=== PATIENT | male | born 1970 | race Caucasian/White ===

== ENCOUNTER → 2017-08-14 | Outpatient (CLI) | payer OTHER ==
--- NOTE | 2017-08-14 16:35 | REP ---
LEFT FINGERS, FOUR VIEWS: HISTORY: Laceration. There is no acute fracture or dislocation. The joint spaces are normal in appearance. Small radiopaque densities are present in the soft tissue anterior to the intermediate phalange of the 3rd digit. IMPRESSION:There is no acute fracture or dislocation. Signed by Grey Paul MD 08/14/2017 04:36 P
== END ==
LOC: M WUC 15:50
PROVIDERS: ATTEND Physician Assistant
DX: S61.213A Laceration without foreign body of left middle finger without damage to nail, initial encounter (principal); X58.XXXA Exposure to other specified factors, initial encounter; Y92.9 Unspecified place or not applicable; Y93.9 Activity, unspecified

== ENCOUNTER 2019-03-10 14:17 | Observation (INO) | payer OTHER ==
[~2019-03-10] VITALS: Ht 167.6 cm; Wt 64.0 kg
[2019-03-10] MEDS ORDERED: PRED20TA PO (14:31)
[2019-03-10] MEDS ORDERED: DIAZ5TAB PO ×2 (14:31→21:38)
[2019-03-10] MEDS ORDERED: IBUP80TA PO (14:31)
[2019-03-10] MEDS ORDERED: ALBU8.5H INH (14:33)
[2019-03-10] MEDS ORDERED: LORazepam 2 MG/ML VIAL (J2060) IM STA (14:47)
[2019-03-10] MEDS ORDERED: CYCLOBENZAPRINE 5MG TABLET PO ONE (15:00)
[2019-03-10] MEDS ORDERED: methylPREDNISolone SUSP 40 MG/ML (DEPO-medrol) VIAL (J1030) IM ONE (15:00)
--- NOTE | 2019-03-10 20:45 | REPVR ---
EXAM: MR Lumbar Spine Without Contrast. EXAM DATE/TIME: 03/10/2019 8:03 PM CLINICAL HISTORY: 48 years old, male; Low back pain; Additional info: Worsening low back pain, unable to bear weight TECHNIQUE: Imaging protocol: Multiplanar magnetic resonance images of the lumbar spine without intravenous contrast. COMPARISON: MRI-Spine, L.S. without con 01/30/2014 10:35 PM FINDINGS: Vertebrae: There is no fracture. Lumbar vertebral alignment is normal. The height of the vertebral bodies is normal. Marrow: STIR images demonstrate no evidence of marrow edema or marrow infiltrating lesion. T12-L1: No central stenosis, foraminal stenosis or disc bulge. L1-L2: Disc dehydration with a posterior annular hyperintense signal focus indicating an annular fissure. There is a stable 3 mm central disc protrusion slightly indenting the thecal sac. No central or foraminal stenosis. L2-L3: No central stenosis, foraminal stenosis or disc bulge. L3-L4: No central stenosis, foraminal stenosis or disc bulge. L4-L5: There disc bulge with a more focal 2 mm central disc protrusion stable in comparison to prior scan. There is facet arthropathy which has slightly increased from the prior scan mildly narrowing the foramina. No central stenosis. L5-S1: There is disc dehydration. There is mild disc space narrowing with mild degenerative changes of the endplates. There is a 7 mm right paracentral disc extrusion markedly approaching on the right lateral recess. There is compression of the descending right S1 nerve root. This is significantly larger and more asymmetric to the right compared with the prior scan. Spinal cord: The lower thoracic cord, conus and cauda equina are normal. Kidneys and ureters: Of incidental note is a horseshoe configuration of the kidneys. No hydronephrosis. Soft tissues: There is no paraspinous or intraspinal soft tissue mass, hemorrhage or fluid collection. IMPRESSION: 1. L5-S1: 7 mm right paracentral extrusion markedly encroaching on the right lateral recess and compressing the descending right S1 nerve root. Markedly progressive from prior scan. 2. L1-L2 and L4-L5: Small stable central disc protrusions. 3. Horseshoe kidney incidentally noted. Electronically signed by: Kyle Shukla On 03/10/2019 20:45:17 PM
[2019-03-10] MEDS: DOCUSATE SODIUM 100 MG CAP PO SCH (21:00)
[2019-03-10] MEDS: FAMOTIDINE 20 MG TAB PO SCH (21:00)
[2019-03-10] MEDS ORDERED: PROAAER10 INH (21:38)
[2019-03-10] MEDS ORDERED: IBUP1TAB7 PO (21:38)
[2019-03-11] MEDS ORDERED: MORPHINE 4 MG/ML 1ML VIAL/SYRINGE (J2270) IV PRN (01:00)
[2019-03-11] MEDS ORDERED: MAALOX 30 ML SUSP *UDC PO PRN (01:00)
[2019-03-11] MEDS ORDERED: ACETAMINOPHEN TAB 650MG DOSE (2X325MG) PO PRN (01:00)
[2019-03-11] MEDS ORDERED: MOM 30ML SUSPENSION UDC PO PRN (01:00)
[2019-03-11 02:10] VITALS: BP 129/81
--- NOTE | 2019-03-11 02:12 | HPEPDOC ---
General Date of Admission March 11, 2019 at 00:48 Chief Complaint The patient is a 48-year-old male admitted with a reason for visit of Acute Low Back Pain. Source: Patient, RN/MD History of Present Illness Mr. Elliott is a 48 years old man who had a minor fall yesterday and came to ER with c/o acute, severe lower back pain, exacerbated by movement, unable to stand up. Pt denies motor or sensory defects; denies bowel or urinary problems. Pain radiates to the right thigh. MRI shows disk bulging with compression on L5-S1 nerve root. Dr. West was consulted who recommended conservative management. Home Medications Scheduled Prednisone (Prednisone) 20 Mg Tablet, 60 MG PO DAILY, (Reported) Scheduled PRN Albuterol Sulfate (Proair Hfa) 8.5 Gm Hfa.aer.ad, 2 PUFF INH Q4H PRN for SHORTNESS OF BREATH, (Reported) Diazepam (Diazepam) 5 Mg Tablet, 5 MG PO Q8H PRN for MUSCLE SPASMS, (Reported) CAN TAKE 2ND TABLET PER DOSE Ibuprofen (Ibuprofen) 800 Mg Tablet, 800 MG PO TID PRN for PAIN, (Reported) Allergies Coded Allergies: No Known Allergies (Unverified , 03/10/19) Past Medical History Medical History Chronic back pain from injury many years ago Surgical History None Family History Significant Family History: No pertinent family hx Social History * Smoker: former Smoker Alcohol: Denies Drugs: denies A-FIB/CHADSVASC A-FIB History Current/History of A-Fib/PAF?: No Review of Systems Constitutional: Denies: Chills, Fever, Malaise Eyes: Denies: Pain ENT: Denies: Head Aches Skin: Denies: Rash, Lesions Pulmonary: Denies: Dyspnea, Cough Cardiovascular: Denies: Chest Pain, Edema Gastrointestinal: Denies: Nausea, Vomiting, Abdominal Pain Genitourinary: Denies: Dysuria, Frequency Musculoskeletal: Reports: Back Pain; Denies: Neck Pain Neurological: Denies: Weakness, Numbness Psych: Reports: Mood Normal; Denies: Anxiety Physical Examination General Exam: Positive: Alert, Cooperative, No Acute Distress Eye Exam: Positive: PERRLA ENT Exam: Positive: Atraumatic Neck Exam: Positive: Supple Chest Exam: Positive: Clear to auscultation, Normal air movement Heart Exam: Positive: Rate Normal, Regular Rhythm Abdomen Exam: Positive: Normal bowel sounds, Soft; Negative: Tenderness Extremity Exam: Negative: Edema Skin Exam: Negative: Rash, Breakdown Neuro Exam: Positive: Normal Speech Psych Exam: Positive: Mental status NL, Mood NL Vital Signs Vital Signs Date Time Temp Pulse Resp B/P (MAP) Pulse Ox O2 Delivery O2 Flow Rate FiO2 03/11/19 01:30 99.1 57 16 141/95 (110) 95 Nasal Cannula 2.0 Assessment/Plan Traumatic Radiculopathy due to L5-S1 Nerve Root Compression - Keep in Observation - Pain management: NSAID, Muscle relaxant, Opioid - PT/OT, Orhto consult Plan / VTE VTE Prophylaxis Ordered?: Yes ZAINAB BATEMAN MD March 11, 2019 02:12
[2019-03-11] MEDS: PERCOCET 5MG/325MG TAB PO PRN ×2 (02:23→10:02)
[2019-03-11 04:00] VITALS: BP_SYST 121; BP_SYST 138; BP_DIAS 67; BP_DIAS 83
[2019-03-11] MEDS: IBUPROFEN 800 MG TAB PO SCH ×3 (05:35→21:11)
[2019-03-11] MEDS: DOCUSATE SODIUM 100 MG CAP PO SCH ×2 (08:19→21:11)
[2019-03-11] MEDS: HEPARIN SOD (PORCINE) 5000 UNITS/ML VIAL SC SCH ×3 (08:19→21:14)
[2019-03-11] MEDS: CYCLOBENZAPRINE 10 MG TAB PO SCH ×3 (08:19→21:11)
[2019-03-11] MEDS: FAMOTIDINE 20 MG TAB PO SCH ×2 (08:19→21:11)
[2019-03-11 13:06] LABS: ALT/SGPT 24 U/L (12-78); BILIRUBIN,TOTAL 0.6 MG/DL (0.2-1.0); BLOOD UREA NITROGEN 24 MG/DL (7-18); CALCIUM LEVEL 8.7 MG/DL (8.5-10.1); CARBON DIOXIDE LEVEL 29 MEQ/L (21-32); CHLORIDE LEVEL 105 MEQ/L (98-107); CREATININE FOR GFR 0.95 MG/DL (0.70-1.30); GLOMERULAR FILTRATION RATE > 60.0 (>60); GLUCOSE, FASTING 92 MG/DL (70-100); POTASSIUM SERUM 3.7 MEQ/L (3.5-5.1); SODIUM LEVEL 141 MEQ/L (136-145); TOTAL PROTEIN 6.6 GM/DL (6.4-8.2)
[2019-03-11] MEDS: methylPREDNISolone 4 MG TAB PO SCH ×4 (13:15→21:11)
[2019-03-11 14:00] VITALS: BP 133/60
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
--- NOTE | 2019-03-11 16:07 | IPNPDOC ---
Date Seen The patient was seen on 03/11/19. Progress Note SUBJECTIVE: Patient complaining of severe back pain even with IV pain medicine. was at the site concerned regarding pain and patient's inability to urinate. Patient states that he is secondary due to pain and states that he will most likely go soon. Continue to monitor for urination. Patient also be evaluated 5 pain management. We'll get basic metabolic panel to evaluate renal function and try to utilize non-narcotic medication if possible. OBJECTIVE PHYSICAL EXAMINATION: VITAL SIGNS: Please see below GENERAL APPEARANCE: Resting comfortably HEENT: Normocephalic, PERRLA, Mucous moist, CARDIOVASCULAR: S1,S2, pulse present, regularly, regular LUNGS: Equal air entry b/l, no wheezes or crackle ABDOMEN: Soft, BS present, no tenderness, no guarding EXTREMITIES: B/L no edema, capillary refill present SKIN: Warm, No fever NEUROLOGICAL: Cranial nerves grossly intact PSYCHIATRIC: Normal mood and affect for current situation LABORATORY DATA, IMAGING STUDIES, MICROBIOLOGY: Please see below. Mr. Elliott is a 48 years old man who had a minor fall yesterday and came to ER with c/o acute, severe lower back pain, exacerbated by movement, unable to stand up. Pt denies motor or sensory defects; denies bowel or urinary problems. Pain radiates to the right thigh. MRI shows disk bulging with compression on L5-S1 nerve root. Dr. West was consulted who recommended conservative management. Assessment and plan: 48 years old man with Chronic back pain from injury many years ago and who had a minor fall came to ER. MRI spine showed L5-S1: 7 mm right paracentral extrusion markedly encroaching on the right lateral recess and compressing the descending right S1 nerve root. Markedly progressive from prior scan plus small central disc protrusion.. Back pain -MRI of Spine showed 1. L5-S1: 7 mm right paracentral extrusion markedly encroaching on the right lateral recess and compressing the descending right S1 nerve root. Markedly progressive from prior scan. 2. L1-L2 and L4-L5: Small stable central disc protrusions. 3. Horseshoe kidney incidentally noted. -I personally spoke with Dr. West who does not recommend surgical intervention at this time. Medical pain management including Medrol pack and nonnarcotic medication if possible. Discussed the case and reviewed the MRI with Dr. West who did not observe cauda equina. -Pain management consult with Etelvina Parada -PT rec outpatient PT, script provided -We'll transition to gabapentin or Lyrica, Celebrex, or IV Toradol as tolerated. Tramadol is also on alternative therapy that can be added on. DVT prophylaxis with early ambulation and heparin subcutaneous A-FIB/CHADSVASC A-FIB History Current/History of A-Fib/PAF?: No VS, I&O, 24H, Fishbone Vital Signs/I&O Vital Signs Date Time Temp Pulse Resp B/P (MAP) Pulse Ox O2 Delivery O2 Flow Rate FiO2 03/11/19 14:00 98.6 82 16 133/60 (84) 96 03/11/19 01:30 Nasal Cannula 2.0 I&O- Last 24 Hours up to 6 AM 03/11/19 06:00 Intake Total 0 ml Output Total 350 ml Balance -350 ml Laboratory Data 24H LABS Laboratory Tests 2 03/11/19 12:01: Anion Gap 7L, Glomerular Filtration Rate > 60.0, Blood Urea Nitrogen 24H, Creatinine 0.95, Sodium Level 141, Potassium Level 3.7, Chloride Level 105, Carbon Dioxide Level 29, Calcium Level 8.7, Aspartate Amino Transf (AST/SGOT) 18, Alanine Aminotransferase (ALT/SGPT) 24, Alkaline Phosphatase 77, Total Bilirubin 0.6, Total Protein 6.6, Albumin 4.0, Albumin/Globulin Ratio 1.54 CBC/BMP Laboratory Tests 03/11/19 12:01 Calcium Level 8.7, Aspartate Amino Transf (AST/SGOT) 18, Alanine Aminotransferase (ALT/SGPT) 24, Alkaline Phosphatase 77, Total Bilirubin 0.6, Total Protein 6.6, Albumin 4.0 ALEJANDRO PRIEST MD March 11, 2019 16:07
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
[2019-03-11 21:32] VITALS: BP 115/70
[2019-03-12] MEDS: IBUPROFEN 800 MG TAB PO SCH ×2 (05:37→13:34)
[2019-03-12 05:55] VITALS: BP 115/58
[2019-03-12] MEDS: HEPARIN SOD (PORCINE) 5000 UNITS/ML VIAL SC SCH (09:00)
[2019-03-12] MEDS: CYCLOBENZAPRINE 10 MG TAB PO SCH (09:04)
[2019-03-12] MEDS: FAMOTIDINE 20 MG TAB PO SCH (09:04)
[2019-03-12] MEDS: methylPREDNISolone 4 MG TAB PO SCH ×2 (09:04→13:34)
[2019-03-12] MEDS: DOCUSATE SODIUM 100 MG CAP PO SCH (09:04)
[2019-03-12] MEDS ORDERED: PRED10TA2 PO (12:18)
--- NOTE | 2019-03-12 12:29 | DS.PDOC ---
Discharge Summary General Date of Admission March 11, 2019 at 00:48 Date of Discharge 03/12/19 Discharge Summary PROCEDURES PERFORMED DURING STAY: [None]. ADMITTING DIAGNOSES: Acute L5 right paracentral disk protrusion with intermittent right lower extremity radiculopathy. DISCHARGE DIAGNOSES: Acute L5 right paracentral disk protrusion with intermittent right lower extremity radiculopathy. COMPLICATIONS/CHIEF COMPLAINT: Acute Low Back Pain. HISTORY OF PRESENT ILLNESS: [Mr. Elliott is a 48 years old man who had a minor fall yesterday and came to ER with c/o acute, severe lower back pain, exacerbated by movement, unable to stand up. Pt denies motor or sensory defects; denies bowel or urinary problems. Pain radiates to the right thigh. MRI shows disk bulging with compression on L5-S1 nerve root. Dr. West was consulted who recommended conservative management. ]. HOSPITAL COURSE: [48 years old man with Chronic back pain from injury many years ago and who had a minor fall came to ER. MRI spine showed L5-S1: 7 mm right paracentral extrusion markedly encroaching on the right lateral recess and compressing the descending right S1 nerve root. Markedly progressive from prior scan plus small central disc protrusion. Patient had physical therapy and his symptoms improved. Patient did not require significant amount of IV medication nor narcotic. Patient renal function is within normal. Recent status post evaluation by pain management. As patient's symptoms improved without significant intervention other than working with physical therapy. Patient to continue to have outpatient physical therapy. Encouraged [id number] pain management as needed. Patient was on prednisone 60 mg at home and has been on it for 4 days prior to his admission for his back pain. We'll provide him with prednisone tapering dose to complete the course. Patient to follow-up with primary care physician within one week, orthopedic group and pain management as outpatient within 2-4 weeks. Patient continued to receive outpatient physical therapy. Patient is agreeable to this plan. Acute L5 right paracentral disk protrusion with intermittent right lower extremity radiculopathy. -MRI of Spine showed 1. L5-S1: 7 mm right paracentral extrusion markedly encroaching on the right lateral recess and compressing the descending right S1 nerve root. Markedly progressive from prior scan. 2. L1-L2 and L4-L5: Small stable central disc protrusions. 3. Horseshoe kidney incidentally noted. -I personally spoke with Dr. West who does not recommend surgical intervention at this time. Medical pain management including Medrol pack and nonnarcotic medication if possible. Discussed the case and reviewed the MRI with Dr. West who did not observe cauda equina. -Pain management consult with Etelvina Parada -PT rec outpatient PT, script provided -We'll transition to gabapentin or Lyrica, Celebrex, or IV Toradol as tolerated. Tramadol is also on alternative therapy that can be added on. ]. DISCHARGE MEDICATIONS: Please see below. ALLERGIES: Please see below. PHYSICAL EXAMINATION ON DISCHARGE: VITAL SIGNS: Please see below GENERAL APPEARANCE: Resting comfortably HEENT: Normocephalic, PERRLA, Mucous moist, CARDIOVASCULAR: S1,S2, pulse present, regularly, regular LUNGS: Equal air entry b/l, no wheezes or crackle ABDOMEN: Soft, BS present, no tenderness, no guarding EXTREMITIES: B/L no edema, capillary refill present SKIN: Warm, No fever NEUROLOGICAL: Cranial nerves grossly intact PSYCHIATRIC: Normal mood and affect for current situation LABORATORY DATA: Please see below. IMAGING: [See report above] PROGNOSIS: [Improved] ACTIVITY: [As tolerated]. DIET: [Regular] DISPOSITION: Home . DISCHARGE CONDITION: [Stable]. TIME SPENT ON DISCHARGE: Greater than [30] minutes. Vital Signs/I&Os Vital Signs Date Time Temp Pulse Resp B/P (MAP) Pulse Ox O2 Delivery O2 Flow Rate FiO2 03/12/19 05:55 98.2 73 18 115/58 (77) 96 03/11/19 01:30 Nasal Cannula 2.0 I&O- Last 24 Hours up to 6 AM 03/12/19 06:00 Intake Total 1440 ml Balance 1440 ml Discharge Medications Scheduled Prednisone (Prednisone) 10 Mg Tablet, 10 MG PO TAPER Take 4 tabs daily x 3 days, then 3 tabs daily x 3 days, then 2 tabs daily x 3 days, then 1 tab daily x 3 days and stop Scheduled PRN Albuterol Sulfate (Proair Hfa) 8.5 Gm Hfa.aer.ad, 2 PUFF INH Q4H PRN for SHORTNESS OF BREATH, (Reported) Diazepam (Diazepam) 5 Mg Tablet, 5 MG PO Q8H PRN for MUSCLE SPASMS, (Reported) CAN TAKE 2ND TABLET PER DOSE Ibuprofen (Ibuprofen) 800 Mg Tablet, 800 MG PO TID PRN for PAIN, (Reported) Allergies Coded Allergies: No Known Allergies (Unverified , 03/10/19) ALEJANDRO PRIEST MD March 12, 2019 12:29
[2019-03-12] MEDS ORDERED: methylPREDNISolone 4 MG TAB PO SCH (21:00)
[2019-03-13] MEDS ORDERED: methylPREDNISolone 4 MG TAB PO SCH (08:00)
[2019-03-14] MEDS ORDERED: methylPREDNISolone 4 MG TAB PO SCH (08:00)
[2019-03-15] MEDS ORDERED: methylPREDNISolone 4 MG TAB PO SCH (08:00)
[2019-03-16] MEDS ORDERED: methylPREDNISolone 4 MG TAB PO SCH (08:00)
== END 2019-03-12 14:20 | disposition home or self-care (01) ==
LOC: M ED 14:17 → M ED INP 14:19 → UNDOADMOB 03-11 00:48 → M ED INP 03-11 00:48 → M MS4PR 03-11 02:10 → M ED INP 03-11 02:10 → UNDODISOB 03-12 14:20
PROVIDERS: ADMIT Internal Medicine; ATTEND Internal Medicine
DX: M51.26 Other intervertebral disc displacement, lumbar region (principal); M54.16 Radiculopathy, lumbar region; M46.1 Sacroiliitis, not elsewhere classified; Z79.899 Other long term (current) drug therapy; Z87.891 Personal history of nicotine dependence; Z91.81 History of falling
CPT/HCPCS: 36415; 72148; 80053; 96372; 97161; 97530; 99285; J1030; J2060

== ENCOUNTER → 2021-07-30 | Outpatient (CLI) | payer OTHER ==
[~2021-07-30] MED LIST: ALBU8.5H INH; DIAZ5TAB PO; IBUP1TAB7 PO; IBUP80TA PO; PRED10TA2 PO; PRED20TA PO; PROAAER10 INH
[2021-07-30 12:38] LABS: ALBUMIN 4.4 GM/DL (3.2-5.2); ALT/SGPT 27 U/L (12-78); BILIRUBIN,TOTAL 0.5 MG/DL (0.2-1.0); BLOOD UREA NITROGEN 13 MG/DL (7-18); CALCIUM LEVEL 9.4 MG/DL (8.5-10.1); CARBON DIOXIDE LEVEL 28 MEQ/L (21-32); CHLORIDE LEVEL 106 MEQ/L (98-107); CHOLESTEROL LEVEL 273 MG/DL (<200); CHOLESTEROL RISK RATIO 4.627 (<5); CREATININE FOR GFR 0.92 MG/DL (0.70-1.30); GLOMERULAR FILTRATION RATE > 60.0 (>60); GLUCOSE, FASTING 107 MG/DL (70-100); HDL CHOLESTEROL 59 MG/DL (>40); LDL CHOLESTEROL 192 MG/DL (<100); NON-HDL-C 214 MG/DL; SODIUM LEVEL 138 MEQ/L (136-145); TOTAL PROTEIN 7.8 GM/DL (6.4-8.2); TRIGLYCERIDES LEVEL 111 MG/DL (<150)
== END ==
LOC: M LAB 11:02
PROVIDERS: ATTEND Nurse Practitioner Family
DX: Z00.00 Encounter for general adult medical examination without abnormal findings (principal)

== ENCOUNTER → 2022-08-30 | Outpatient (CLI) | payer OTHER ==
[2022-08-30 11:34] LABS: ALT/SGPT 25 U/L (12-78); BILIRUBIN,TOTAL 0.6 MG/DL (0.2-1.0); BLOOD UREA NITROGEN 16 MG/DL (7-18); CALCIUM LEVEL 8.9 MG/DL (8.5-10.1); CARBON DIOXIDE LEVEL 28 MEQ/L (21-32); CHLORIDE LEVEL 108 MEQ/L (98-107); CHOLESTEROL LEVEL 216 MG/DL (<200); GLOMERULAR FILTRATION RATE > 60.0 (>56); GLUCOSE, FASTING 101 MG/DL (70-100); HDL CHOLESTEROL 50 MG/DL (>40); LDL CHOLESTEROL 146 MG/DL (<100); NON-HDL-C 166 MG/DL; POTASSIUM SERUM 5.1 MEQ/L (3.5-5.1); SODIUM LEVEL 139 MEQ/L (136-145); TRIGLYCERIDES LEVEL 98 MG/DL (<150)
== END ==
LOC: M RAD 09:00
PROVIDERS: ATTEND Nurse Practitioner Family
DX: Z12.2 Encounter for screening for malignant neoplasm of respiratory organs (principal); F17.210 Nicotine dependence, cigarettes, uncomplicated; E78.2 Mixed hyperlipidemia; R91.1 Solitary pulmonary nodule

== ENCOUNTER → 2023-09-05 | Outpatient (CLI) | payer OTHER | LOC: M RAD 07:53 | PROVIDERS: ATTEND Nurse Practitioner Family | DX: Z12.2 Encounter for screening for malignant neoplasm of respiratory organs (principal); F17.210 Nicotine dependence, cigarettes, uncomplicated; R91.8 Other nonspecific abnormal finding of lung field ==

== ENCOUNTER → 2023-09-05 | Outpatient (CLI) | payer OTHER ==
[2023-09-05 09:37] LABS: BASO # 0.1 10^3/uL (0.0-0.2); BASO % 0.6 % (0.0-1.0); EOS # 0.4 10^3/uL (0.0-0.5); HEMATOCRIT 47.8 % (42.0-52.0); HEMOGLOBIN 16.3 g/dl (13.5-17.5); LYMPH # 2.2 10^3/uL (1.5-5.0); LYMPH % 23.1 % (24.0-44.0); MEAN CORPUSCULAR HEMOGLOBIN 32.5 pg (27.0-33.0); MEAN CORPUSCULAR HGB CONC 34.1 g/dl (32.0-36.5); MEAN CORPUSCULAR VOLUME 95.2 fl (80.0-96.0); MONO # 0.5 10^3/uL (0.0-0.8); MONO % 5.1 % (2.0-8.0); NEUTROPHILS # 6.4 10^3/uL (1.5-8.5); NEUTROPHILS % 66.9 % (36.0-66.0); PLATELET COUNT, AUTOMATED 260 10^3/uL (150-450); RED BLOOD COUNT 5.02 10^6/uL (4.30-6.10); WHITE BLOOD COUNT 9.6 10^3/uL (4.0-10.0)
[2023-09-05 09:58] LABS: ALBUMIN 3.8 G/DL (3.2-5.2); ALKALINE PHOSPHATASE 83 U/L (46-116); ALT/SGPT 17 U/L (7.0-40); AST/SGOT 13 U/L (<34); BILIRUBIN,TOTAL 0.5 MG/DL (0.3-1.2); BLOOD UREA NITROGEN 13 MG/DL (9-23); CALCIUM LEVEL 8.9 MG/DL (8.5-10.1); CARBON DIOXIDE LEVEL 29 MMOL/L (20-31); CHLORIDE LEVEL 109 MMOL/L (98-107); CHOLESTEROL LEVEL 221 MG/DL (<200); CHOLESTEROL RISK RATIO 4.69 (<5); CREATININE FOR GFR 0.95 MG/DL (0.70-1.30); GLOMERULAR FILTRATION RATE > 60.0 (>56); GLUCOSE, FASTING 95 MG/DL (60-100); HDL CHOLESTEROL 47.1 MG/DL (>40); LDL CHOLESTEROL 160.9 MG/DL (<100); NON-HDL-C 173.9 MG/DL; POTASSIUM SERUM 4.5 MMOL/L (3.5-5.1); SODIUM LEVEL 145 MMOL/L (136-145); TOTAL PROTEIN 6.6 G/DL (5.7-8.2); TRIGLYCERIDES LEVEL 65 MG/DL (<150)
== END ==
LOC: M LAB 07:58
PROVIDERS: ATTEND Registered Nurse
DX: Z00.00 Encounter for general adult medical examination without abnormal findings (principal)

== ENCOUNTER → 2024-09-04 | Outpatient (CLI) | payer OTHER ==
[2024-09-04 10:12] LABS: BASO # 0.1 10^3/uL (0.0-0.2); EOS # 0.5 10^3/uL (0.0-0.5); EOS % 5.5 % (0.0-3.0); HEMATOCRIT 49.6 % (42.0-52.0); HEMOGLOBIN 16.6 g/dl (13.5-17.5); LYMPH # 2.6 10^3/uL (1.5-5.0); LYMPH % 30.8 % (24.0-44.0); MEAN CORPUSCULAR HEMOGLOBIN 31.6 pg (27.0-33.0); MEAN CORPUSCULAR HGB CONC 33.5 g/dl (32.0-36.5); MEAN CORPUSCULAR VOLUME 94.5 fl (80.0-96.0); MONO # 0.5 10^3/uL (0.0-0.8); NEUTROPHILS # 4.7 10^3/uL (1.5-8.5); NEUTROPHILS % 56.3 % (36.0-66.0); PLATELET COUNT, AUTOMATED 266 10^3/uL (150-450); RED BLOOD COUNT 5.25 10^6/uL (4.30-6.10); WHITE BLOOD COUNT 8.3 10^3/uL (4.0-10.0)
[2024-09-04 10:45] LABS: ALBUMIN 3.9 G/DL (3.2-5.2); ALKALINE PHOSPHATASE 97 U/L (40-129); ALT/SGPT 28 U/L (7.0-40); AST/SGOT 21 U/L (<34); BILIRUBIN,TOTAL 0.6 MG/DL (0.3-1.2); BLOOD UREA NITROGEN 15 MG/DL (9-23); CALCIUM LEVEL 9.6 MG/DL (8.5-10.1); CARBON DIOXIDE LEVEL 28 MMOL/L (20-31); CHLORIDE LEVEL 107 MMOL/L (98-107); CHOLESTEROL LEVEL 229 MG/DL (<200); CHOLESTEROL RISK RATIO 5.02 (<5); CREATININE FOR GFR 0.89 MG/DL (0.70-1.30); GLOMERULAR FILTRATION RATE > 60.0 (>56); GLUCOSE, FASTING 112 MG/DL (60-100); HDL CHOLESTEROL 45.6 MG/DL (>40); NON-HDL-C 183.4 MG/DL; POTASSIUM SERUM 4.8 MMOL/L (3.5-5.1); SODIUM LEVEL 141 MMOL/L (136-145); TOTAL PROTEIN 6.9 G/DL (5.7-8.2); TRIGLYCERIDES LEVEL 97 MG/DL (<150)
== END ==
LOC: M LAB 08:51
PROVIDERS: ATTEND Registered Nurse
DX: E78.2 Mixed hyperlipidemia (principal)